=== PATIENT | male | born 1960 | race Caucasian/White ===

== ENCOUNTER 2020-02-10 14:21 | Observation (INO) ==
[2020-02-10 15:13] LABS: INR 1.2; Prothrombin Time 14.3 Seconds (9.4-12.1)
[2020-02-10 15:13] LABS: Basophils % 0.2 %; Eosinophils # 0.1 K/mcL (0.0-0.6); Hematocrit 41.1 % (37.5-50.1); Hemoglobin 13.3 g/dL (12.9-16.9); Immature Granulocytes % 0.1 % (0-4); Lymphocytes # 2.5 K/mcL (0.6-4.6); Lymphocytes % 24.7 %; Mean Corpuscular HGB Conc 32.4 g/dL (31.6-35.5); Mean Corpuscular Hemoglobin 29.5 pg (28.0-33.3); Mean Corpuscular Volume 91.1 fL (83.0-100.0); Mean Platelet Volume 11.2 fL (9.4-12.4); Monocytes # 1.1 K/mcL (0.0-1.3); Monocytes % 10.7 %; Platelet Count 256 K/mcL (140-400); Red Blood Count 4.51 M/mcL (4.19-5.50); Segmented Neutrophils % 63.3 %; White Blood Count 10.2 K/mcL (4.3-11.1)
[2020-02-10] MEDS ORDERED: Azithromycin 500 MG in 0.9 % Sodium Chloride 250 ML IVPB ONE (15:13)
[2020-02-10] MEDS ORDERED: cefTRIAXone 1,000 MG in Water for inj. (sterile) 10 ML IVP ONE (15:13)
[2020-02-10] MEDS ORDERED: Furosemide 20 MG/2 ML VIAL IVP ONE (15:13)
[2020-02-10 15:15] LABS: Neutrophils # 6.5 K/mcL (1.6-8.9)
[2020-02-10 15:16] LABS: Activated Partial Thrombo Time 30.5 Seconds (26.0-36.0)
[2020-02-10 15:29] LABS: Albumin 3.6 g/dL (3.5-5.7); Albumin/Globulin Ratio 1.1 (1.1-2.2); Bilirubin,Direct 0.3 mg/dL (0.0-0.2); Bilirubin,Indirect 0.5 mg/dL (0.0-1.0); Bilirubin,Total 0.8 mg/dL (0.3-1.0); Globulin 3.2 g/dL (2.4-3.5); Total Protein 6.8 g/dL (6.4-8.9)
[2020-02-10 15:51] LABS: Platelet Estimate Normal (Normal)
[2020-02-10] MEDS ORDERED: Ondansetron 4 MG/2 ML VIAL IVP ONE (16:04)
[2020-02-10] MEDS ORDERED: Naloxone 0.4 MG/ML INJ IVP PRN (16:27)
[2020-02-10] MEDS ORDERED: Ondansetron 4 MG/2 ML VIAL IVP PRN (16:27)
[2020-02-10] MEDS ORDERED: Acetaminophen 325 MG TABLET PO PRN (16:27)
[2020-02-10] MEDS ORDERED: Perflutren Lipid Microsphere 1.3 ML in 0.9 % Sodium Chloride 8.7 ML IVP PRN (16:28)
[2020-02-10] MEDS ORDERED: Isovue-370 500 ML BOTTLE IVP ONE (16:51)
[2020-02-10 17:17] LABS: BUN/Creatinine Ratio 19 (6-26); Blood Urea Nitrogen 17 mg/dL (6-20); Calcium 8.7 mg/dL (8.6-10.3); Carbon Dioxide 25 mEq/L (23-29); Chloride 106 mEq/L (98-107); Glucose 150 mg/dL (70-105); Magnesium 1.8 mg/dL (1.6-2.6); Osmolality,Calculated 292 (280-300); Potassium 3.6 mEq/L (3.5-5.1); Sodium 139 mEq/L (136-145); eGFR For African Americans > 60 (> 60); eGFR For Non-African Americans > 60 (> 60)
[2020-02-10 18:08] VITALS: BP 156/106
[2020-02-10 18:13] LABS: Troponin I 0.05 ng/mL (< 0.04)
[2020-02-10] MEDS ORDERED: Furosemide 20 MG/2 ML VIAL IVP SCH (21:00)
[2020-02-11] MEDS ORDERED: Azithromycin 500 MG in 0.9 % Sodium Chloride 250 ML IVPB SCH (09:00)
[2020-02-11] MEDS ORDERED: cefTRIAXone 1,000 MG in Water for inj. (sterile) 10 ML IVP SCH (09:00)
== END 2020-02-10 19:00 | disposition left against medical advice (07) ==
LOC: EMEROOARM 14:21 → 3ANU 14:21
PROVIDERS: ADMIT Internal Medicine; ATTEND Internal Medicine

== ENCOUNTER 2020-05-15 05:02 | Observation (INO) ==
[2020-05-15] MEDS ORDERED: Famotidine 20 MG/2 ML VIAL IVP ONE (05:20)
[2020-05-15] MEDS ORDERED: Aspirin 81 MG TAB.CHEW ONE (06:00)
[2020-05-15] MEDS ORDERED: Aspirin 81 MG TAB.CHEW PO ONE (06:06)
[2020-05-15 06:16] LABS: Basophils # 0.1 K/mcL (0.0-0.2); Basophils % 0.4 %; Eosinophils # 0.1 K/mcL (0.0-0.6); Eosinophils % 1.1 %; Hematocrit 39.1 % (37.5-50.1); Hemoglobin 12.1 g/dL (12.9-16.9); Immature Granulocytes % 0.4 % (0-4); Lymphocytes # 2.3 K/mcL (0.6-4.6); Mean Corpuscular HGB Conc 30.9 g/dL (31.6-35.5); Mean Corpuscular Hemoglobin 27.2 pg (28.0-33.3); Mean Corpuscular Volume 87.9 fL (83.0-100.0); Mean Platelet Volume 10.8 fL (9.4-12.4); Monocytes # 1.5 K/mcL (0.0-1.3); Monocytes % 12.8 %; Neutrophils # 7.4 K/mcL (1.6-8.9); Platelet Count 283 K/mcL (140-400); Red Blood Count 4.45 M/mcL (4.19-5.50); Red Cell Distribution Width 15.4 % (11.5-14.5); Segmented Neutrophils % 65.3 %; White Blood Count 11.3 K/mcL (4.3-11.1)
[2020-05-15 06:20] LABS: INR 1.3; Prothrombin Time 15.1 Seconds (9.4-12.1)
[2020-05-15 06:47] LABS: Alanine Aminotransferase 25 Units/L (7-52); Albumin 3.3 g/dL (3.5-5.7); Alkaline Phosphatase 128 Units/L (34-104); Aspartate Amino Transferase 32 Units/L (13-39); BUN/Creatinine Ratio 23 (6-26); Bilirubin,Direct 0.3 mg/dL (0.0-0.2); Bilirubin,Indirect 0.2 mg/dL (0.0-1.0); Bilirubin,Total 0.5 mg/dL (0.3-1.0); Blood Urea Nitrogen 27 mg/dL (6-20); Calcium 8.5 mg/dL (8.6-10.3); Carbon Dioxide 26 mEq/L (23-29); Chloride 102 mEq/L (98-107); Globulin 3.3 g/dL (2.4-3.5); Glucose 179 mg/dL (70-105); Lipase 29 Units/L (11-82); Osmolality,Calculated 290 (280-300); Potassium 3.8 mEq/L (3.5-5.1); Sodium 135 mEq/L (136-145); Total Protein 6.6 g/dL (6.4-8.9); Troponin I 0.04 ng/mL (< 0.04); eGFR For African Americans > 60 (> 60); eGFR For Non-African Americans > 60 (> 60)
[2020-05-15] MEDS ORDERED: *HR* FentaNYL (PF) 100 MCG/2 ML VIAL IVP ONE (06:58)
[2020-05-15] MEDS ORDERED: cefTRIAXone 1,000 MG in 0.9 % Sodium Chloride Mini Bag 100 ML IVPB ONE (06:58)
[2020-05-15] MEDS ORDERED: Azithromycin 500 MG in 0.9 % Sodium Chloride 250 ML IVPB ONE (06:58)
[2020-05-15] MEDS ORDERED: Nicotine 21 MG PATCH.TD24 TD ONE (07:34)
[2020-05-15] MEDS ORDERED: Naloxone 0.4 MG/ML INJ IVP PRN (08:00)
[2020-05-15] MEDS ORDERED: Aspirin 81 MG TAB.CHEW PO SCH (09:00)
[2020-05-15] MEDS ORDERED: Perflutren Lipid Microsphere 1.3 ML in 0.9 % Sodium Chloride 8.7 ML IVP PRN (09:39)
[2020-05-15 11:37] LABS: Amphetamine Screen,Urine Negative ng/mL (Cutoff=1000); Barbiturate Screen,Urine Negative ng/mL (Cutoff=200); Benzodiazepines Screen,Urine Negative ng/mL (Cutoff=200); Cannabinoid Screen,Urine Positive ng/mL (Cutoff = 50); Cocaine Screen,Urine Negative ng/mL (Cutoff= 300); Opiate Screen,Urine Negative ng/mL (Cutoff=300); Phencyclidine Screen,Urine Negative ng/mL (Cutoff=25)
[2020-05-15] MEDS: carvediloL 6.25 MG TABLET PO SCH ×2 (12:32→15:44)
[2020-05-15] MEDS ORDERED: *HR* Heparin 5,000 UNIT/ML VIAL IVP PRN ×2 (15:08)
[2020-05-15] MEDS ORDERED: *HR* Heparin 5,000 UNIT/ML VIAL IVP ONE (15:08)
[2020-05-15] MEDS ORDERED: Heparin 25,000UNIT/250ML 1/2NS 25,000 UNIT/250 ML IV.SOLN IVC SCH (15:15)
[2020-05-15] MEDS: Furosemide 20 MG/2 ML VIAL IVP SCH ×2 (15:44→21:35)
[2020-05-15] MEDS ORDERED: *HR* Heparin 5,000 UNIT/ML VIAL SQ SCH (18:00)
[2020-05-15] MEDS ORDERED: Furosemide 20 MG TABLET PO SCH (21:00)
[2020-05-16 03:55] LABS: Basophils % 0.4 %; Eosinophils # 0.2 K/mcL (0.0-0.6); Eosinophils % 1.6 %; Hematocrit 37.8 % (37.5-50.1); Hemoglobin 11.5 g/dL (12.9-16.9); Immature Granulocytes % 0.4 % (0-4); Lymphocytes # 3.2 K/mcL (0.6-4.6); Lymphocytes % 28.4 %; Mean Corpuscular HGB Conc 30.4 g/dL (31.6-35.5); Mean Corpuscular Hemoglobin 26.6 pg (28.0-33.3); Mean Corpuscular Volume 87.5 fL (83.0-100.0); Mean Platelet Volume 11.2 fL (9.4-12.4); Monocytes # 1.5 K/mcL (0.0-1.3); Monocytes % 12.8 %; Neutrophils # 6.4 K/mcL (1.6-8.9); Platelet Count 283 K/mcL (140-400); Red Blood Count 4.32 M/mcL (4.19-5.50); Red Cell Distribution Width 15.2 % (11.5-14.5); Segmented Neutrophils % 56.4 %; White Blood Count 11.4 K/mcL (4.3-11.1)
[2020-05-16 04:13] LABS: VBG HCO3 29 mEq/L (21-27); VBG PCO2 47 mmHg (41-51); VBG PO2 109 mmHg (25-50)
[2020-05-16 04:15] LABS: Alanine Aminotransferase 27 Units/L (7-52); Albumin 3.1 g/dL (3.5-5.7); Albumin/Globulin Ratio 0.9 (1.1-2.2); Alkaline Phosphatase 108 Units/L (34-104); Aspartate Amino Transferase 32 Units/L (13-39); BUN/Creatinine Ratio 22 (6-26); Bilirubin,Total 0.7 mg/dL (0.3-1.0); Blood Urea Nitrogen 24 mg/dL (6-20); Calcium 8.3 mg/dL (8.6-10.3); Carbon Dioxide 30 mEq/L (23-29); Chloride 103 mEq/L (98-107); Globulin 3.4 g/dL (2.4-3.5); Glucose 180 mg/dL (70-105); Osmolality,Calculated 295 (280-300); Potassium 3.6 mEq/L (3.5-5.1); Sodium 138 mEq/L (136-145); Total Protein 6.5 g/dL (6.4-8.9); eGFR For African Americans > 60 (> 60); eGFR For Non-African Americans > 60 (> 60)
[2020-05-16 07:17] VITALS: BP 136/97
[2020-05-16] MEDS: carvediloL 6.25 MG TABLET PO SCH (08:07)
[2020-05-16] MEDS: Furosemide 20 MG/2 ML VIAL IVP SCH (08:07)
[2020-05-16] MEDS ORDERED: Aspirin 81 MG TAB.CHEW PO SCH (09:00)
[2020-05-16] MEDS ORDERED: lisinopriL 5 MG TABLET PO SCH (09:00)
== END 2020-05-16 12:28 | disposition left against medical advice (07) ==
LOC: 3BNU 05:02 → EMEROOARM 05:02 → SUATTDRO 07:25 → 3BNU 08:23
PROVIDERS: ADMIT Internal Medicine; ATTEND Registered Nurse